=== PATIENT | male | born 1940 | race Caucasian/White ===

== ENCOUNTER 2024-10-30 12:10 | Observation (INO) | payer OTHER ==
[~2024-10-30] VITALS: Ht 170.2 cm; Wt 97.1 kg
[~2024-10-30 12:10] MED LIST: ALLO300 PO; CIPR500 PO; DORZOLAMIDE-TIM10 ML; LATANOPROST2.5 M3; LEVOTHYROXINE200 MCG; LISI5 PO; OMEP20ER PO; PRAV20 PO
[2024-10-30 13:44] LABS: BASOPHILS ABSOLUTE AUTO 0.05 K/mm3 (0.00-0.23); BASOPHILS PERCENT AUTO 1 % (0-2); EOSINOPHILS ABSOLUTE AUTO 0.22 K/mm3 (0.00-0.68); EOSINOPHILS PERCENT AUTO 4 % (0-6); Hematocrit 47.8 % (37.0-53.0); Hemoglobin 16.0 g/dL (13.5-17.5); IMMATURE GRAN ABSOLUTE AUTO 0.04 K/mm3 (0.00-0.10); IMMATURE GRAN PERCENT AUTO 1 % (0-1); LYMPHOCYTES ABSOLUTE AUTO 2.03 K/mm3 (0.84-5.20); LYMPHOCYTES PERCENT AUTO 35 % (21-46); MONOCYTES ABSOLUTE AUTO 0.39 K/mm3 (0.16-1.47); MONOCYTES PERCENT AUTO 7 % (4-13); Mean Corpuscular HGB Conc 33.5 g/dL (31.5-36.5); Mean Corpuscular Volume 93 fL (80-100); NEUTROPHILS ABSOLUTE AUTO 3.12 K/mm3 (1.96-9.15); NEUTROPHILS PERCENT AUTO 53 % (41-73); NRBC ABSOLUTE 0.00 K/mm3 (0.00-0.02); NRBC Auto 0.0 /100 WBC (0.0-0.2); Platelet Count 156 K/mm3 (150-400); RDW Coefficient Variation 14.5 % (11.7-14.2); RDW Standard Deviation 49.3 fL (35.1-46.3)
[2024-10-30 14:14] LABS: Alanine Aminotransfer (ALT/SGP 35.0 U/L (12-78); Albumin, Blood 4.4 g/dL (3.4-5.0); Albumin/Globulin Ratio 1.3 (0.8-1.8); Anion Gap 8.0 mmol/L (3-11); Aspartate Aminotrans (AST/SGOT 25.0 U/L (12-37); Bilirubin, Total 0.8 mg/dL (0.1-1.0); Blood Urea Nitrogen 31.0 mg/dL (8-24); CO2, Blood 27.0 mmol/L (21-32); Calcium, Blood 9.9 mg/dL (8.5-10.1); Chloride, Blood 106.0 mmol/L (98-108); Creatinine, Blood 2.57 mg/dL (0.60-1.20); Globulin, Blood 3.3 g/dL (2.2-4.0); Glucose, Blood 121.0 mg/dL (70-99); Potassium, Blood 4.0 mmol/L (3.5-5.5); Sodium, Blood 137.0 mmol/L (136-145); Total Protein, Blood 7.7 g/dL (6.4-8.2)
[2024-10-30] MEDS ORDERED: NS 1,000 ML IV SCH ×3 (18:25→21:30)
[2024-10-30 19:42] LABS: Prostate Specific Antigen 8.630 ng/mL (0.000-4.000)
[2024-10-30 19:57] LABS: Thyroid Stimulating Hormone 195.000 uIU/mL (0.360-4.800)
[2024-10-30 20:47] LABS: Source, Urine Clean Catch
[2024-10-30 21:00] LABS: Bilirubin, Urine Neg (Neg); Glucose Qualitative, Urine Neg (Neg); Ketones, Urine Neg (Neg); Leukocyte Esterase, Urine Neg (Neg); Protein, Urine Neg (Neg); Specific Gravity, Urine 1.020 (1.003-1.022); Urobilinogen, Urine NORM (Normal)
[2024-10-30 21:07] LABS: Color, Urine Yellow (P-Yellow)
[2024-10-30] MEDS ORDERED: Ondansetron HCl 2 MG / ML 2ML Vial IV PRN (21:30)
[2024-10-30] MEDS ORDERED: HydrALAZINE HCl 20 MG / ML 1ML Vial IV PRN (21:40)
--- NOTE | 2024-10-30 22:57 | NUR ---
TOOK REPORT ED RENE SILVA.
[2024-10-30 23:21] VITALS: BP 175/101
[2024-10-31 04:35] VITALS: BP 131/83
--- NOTE | 2024-10-31 05:28 | NUR ---
SHIFT SUMMARY NOC PT A/O X 4. VERY POOR BILATERAL VISION DUE TO GLAUCOMA. 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 PT IS 1PA/FWW DUE TO INCREASED WEAKNESS FROM DX OF JAMAL. PT STOPPED TAKING ALL MEDICATIONS 8 MONTHS AGO AND THYROID LABS REFLECT THAT, ONE TIME DOSE IV LEVOTHYROXIN GIVEN ALONG WITH PO REGULAR DOSE. PT HAS BEEN HYPERTENSIVE SINCE ARRIVAL IN ED AND FIRST DOSE OF NORVASC GIVEN UPON ARRIVAL TO UNIT. MEDICATIONS HAVE BEEN RECONCILED. PT HAS NS INFUSING @ 100 ML/HR. US RENAL/BLADDER ORDERED FOR TODAY. PT CURRENTLY RESTING WITH BED IN LOWEST POSITION, AND CALL LIGHT WITHIN REACH.
[2024-10-31] MEDS ORDERED: Levothyroxine Sodium 0.137 MG Tab PO SCH (06:00)
[2024-10-31 06:23] LABS: Hematocrit 51.6 % (37.0-53.0); Hemoglobin 16.7 g/dL (13.5-17.5); Mean Corpuscular HGB Conc 32.4 g/dL (31.5-36.5); NRBC ABSOLUTE 0.00 K/mm3 (0.00-0.02); NRBC Auto 0.0 /100 WBC (0.0-0.2); RDW Coefficient Variation 14.6 % (11.7-14.2); RDW Standard Deviation 53.0 fL (35.1-46.3)
[2024-10-31 06:26] LABS: Mean Corpuscular Volume 98 fL (80-100)
[2024-10-31 07:38] VITALS: BP 148/87
[2024-10-31] MEDS ORDERED: Heparin Sodium,Porcine 5,000 UNIT/0.5 ML SDV SC SCH (09:00)
[2024-10-31 11:02] LABS: Alanine Aminotransfer (ALT/SGP 28.0 U/L (12-78); Albumin, Blood 4.0 g/dL (3.4-5.0); Albumin/Globulin Ratio 1.2 (0.8-1.8); Anion Gap 11.0 mmol/L (3-11); Aspartate Aminotrans (AST/SGOT 27.0 U/L (12-37); Bilirubin, Total 1.1 mg/dL (0.1-1.0); Blood Urea Nitrogen 25.0 mg/dL (8-24); CO2, Blood 22.0 mmol/L (21-32); Calcium, Blood 9.5 mg/dL (8.5-10.1); Chloride, Blood 106.0 mmol/L (98-108); Creatinine, Blood 2.16 mg/dL (0.60-1.20); Globulin, Blood 3.3 g/dL (2.2-4.0); Glucose, Blood 177.0 mg/dL (70-99); Potassium, Blood 3.8 mmol/L (3.5-5.5); Sodium, Blood 135.0 mmol/L (136-145); Total Protein, Blood 7.3 g/dL (6.4-8.2)
[2024-10-31] MEDS ORDERED: AMLO10 PO (13:54)
--- NOTE | 2024-10-31 14:38 | NUR ---
DC SUMMARY PT DC HOME c HOME HEALTH DC INSTRUCTION GONE OVER WITH PT AND PT SON WHOM STATED UNDERDSTANDING. PT ESCORETED OUT VIA W/C.
== END 2024-10-31 15:00 | disposition home health service (06) ==
LOC: ER 12:10 → MEDS 12:11
PROVIDERS: Nurse Practitioner Acute Care; Physician Assistant; ADMIT Student in an Organized Health Care Education/Training Program
DX: E03.8 Other specified hypothyroidism (principal); N17.9 Acute kidney failure, unspecified; N18.32 Chronic kidney disease, stage 3b; I12.9 Hypertensive chronic kidney disease with stage 1 through stage 4 chronic kidney disease, or unspecified chronic kidney disease; K21.9 Gastro-esophageal reflux disease without esophagitis; M10.9 Gout, unspecified; E78.5 Hyperlipidemia, unspecified; R97.20 Elevated prostate specific antigen [PSA]; Z79.899 Other long term (current) drug therapy; Z79.890 Hormone replacement therapy
CPT/HCPCS: 36415; 51798; 71046; 76770; 80053; 81003; 83880; 84153; 84439; 84443; 84481; 84484; 85025; 85027; 93005; 93010; 96372; 96374; 97116; 97161; 97530; 99285-25; A9270; G0378; J1644; J7030

== ENCOUNTER → 2024-11-30 | Outpatient (CLI) | payer OTHER ==
[~2024-11-30] MED LIST changes: +AMLO10 PO
[2024-11-30 17:55] LABS: BASOPHILS ABSOLUTE AUTO 0.06 K/mm3 (0.00-0.23); BASOPHILS PERCENT AUTO 1 % (0-2); EOSINOPHILS ABSOLUTE AUTO 0.17 K/mm3 (0.00-0.68); EOSINOPHILS PERCENT AUTO 3 % (0-6); Hematocrit 45.9 % (37.0-53.0); Hemoglobin 15.0 g/dL (13.5-17.5); IMMATURE GRAN ABSOLUTE AUTO 0.03 K/mm3 (0.00-0.10); IMMATURE GRAN PERCENT AUTO 1 % (0-1); LYMPHOCYTES ABSOLUTE AUTO 1.37 K/mm3 (0.84-5.20); LYMPHOCYTES PERCENT AUTO 22 % (21-46); MONOCYTES ABSOLUTE AUTO 0.67 K/mm3 (0.16-1.47); MONOCYTES PERCENT AUTO 11 % (4-13); Mean Corpuscular HGB Conc 32.7 g/dL (31.5-36.5); Mean Corpuscular Volume 94 fL (80-100); NEUTROPHILS ABSOLUTE AUTO 4.07 K/mm3 (1.96-9.15); NEUTROPHILS PERCENT AUTO 64 % (41-73); NRBC ABSOLUTE 0.00 K/mm3 (0.00-0.02); NRBC Auto 0.0 /100 WBC (0.0-0.2); Platelet Count 191 K/mm3 (150-400); RDW Coefficient Variation 13.2 % (11.7-14.2); RDW Standard Deviation 45.7 fL (35.1-46.3)
[2024-11-30 18:56] LABS: Alanine Aminotransfer (ALT/SGP 29 U/L (12-78); Albumin, Blood 4.1 g/dL (3.4-5.0); Albumin/Globulin Ratio 1.2 (0.8-1.8); Anion Gap 7 mmol/L (3-11); Aspartate Aminotrans (AST/SGOT 12 U/L (12-37); Bilirubin, Total 0.8 mg/dL (0.1-1.0); Blood Urea Nitrogen 27 mg/dL (8-24); CO2, Blood 26 mmol/L (21-32); Calcium, Blood 10.0 mg/dL (8.5-10.1); Chloride, Blood 108 mmol/L (98-108); Creatinine, Blood 1.94 mg/dL (0.60-1.20); Globulin, Blood 3.5 g/dL (2.2-4.0); Glucose, Blood 150 mg/dL (70-99); PSA, %Free 13.6 %; PSA, Free 1.410 ng/mL; Potassium, Blood 4.1 mmol/L (3.5-5.5); Prostate Specific Antigen 10.400 ng/mL (0.000-4.000); Sodium, Blood 137 mmol/L (136-145); Thyroid Stimulating Hormone 13.000 uIU/mL (0.360-4.800); Total Protein, Blood 7.6 g/dL (6.4-8.2); Uric Acid, Blood 5.8 mg/dL (3.5-7.2)
== END ==
LOC: LAB 09:35 → LAB SHORT 09:35
DX: I10 Essential (primary) hypertension (principal); E03.9 Hypothyroidism, unspecified; M1A.9XX0 Chronic gout, unspecified, without tophus (tophi); R97.20 Elevated prostate specific antigen [PSA]
CPT/HCPCS: 80053; 84153; 84154; 84439; 84443; 84550; 85025